=== PATIENT | female | born 1965 | race Caucasian/White ===

== ENCOUNTER 2024-01-06 09:22 | Outpatient (AMB) | payer OTHER, SELFPAY ==
--- NOTE | 2024-01-06 09:37 | A.OFFVIS_ITS ---
Intake Vital Signs 01/06/24 09:41 Height 5 ft 6 in Weight 285 lb BMI 46.0 BP 132/69 Blood Pressure Location Lt brachial Position Sitting Pulse 95 Intake Visit Reasons: Colonoscopy screening Intake Note: Patient first pre colonoscopy screening. Patient denies any GI issues. Reading Coach Required: No Accompanied by: Self / Same As Patient Allergies No Known Allergies Allergy (Verified 01/06/24 09:37) Medication List - Last Reconciled 01/06/24 by Quin Li PA-C apixaban (Eliquis) 5 mg PO BID atorvastatin 20 mg PO DAILY cholecalciferol (vitamin D3) 125 mcg PO DAILY hydrochlorothiazide 25 mg PO DAILY lisinopril 10 mg PO DAILY loratadine 10 mg PO DAILY magnesium 250 mg PO DAILY omeprazole 20 mg PO DAILY HPI HPI Comments History of Present Illness Details A 58 y/o female referred for index screening colonoscopy Appetite good Bowels normal Works FT No cardiac or respiratory Hx DVT-eliquis since 12/2020- hes stopped for procedures No N/V/D/ abdominal pain- fever or chills PFSH Surgical History Hx of arthroscopy History of bunionectomy Hx of foot surgery Family History Father HTN (hypertension) Sister DMII (diabetes mellitus, type 2) Social History (Updated 01/06/24 @ 09:54 by Quin Li PA-C) Household Members: Family Alcohol intake: never Patient Tobacco Use Status: Former Tobacco user Current occupational status: employed Current occupation: factory Physical Exam Vital Signs: Last Vital Signs Pulse 95 01/06/24 09:41 BP 132/69 01/06/24 09:41 BMI result Body Mass Index 46.0 Const General: cooperative, healthy appearing, comfortable and no acute distress Nutritional Appearance: overweight Orientation/consciousness: patient oriented x3 Limitations: no limitations Eyes Sclerae: sclerae normal Resp Auscultation: clear to auscultation bilaterally, no rales, no rhonchi and no wheezes Cardio Rate: regular rate Rhythm: regular rhythm Heart sounds: S1 normal heart sound present and S2 normal heart sound present GI Palpation (GI): Soft to palpation and nontender Auscultation: normal bowel sounds Skin General skin exam: no rashes or lesions noted Neuro General: patient oriented x3 Extrem General: Yes full ROM Psych Appearance: grossly normal Mental Status: mental status grossly normal Speech and movement: Normal speech and movement present Affect: normal affect Attitude: cooperative Thought process: Normal thought process present Thought content: Normal thought content present Insight: Good insight present (Psych) Judgement: Good judgement present (Psych) Assessment & Plan Assessment & Plan (1) Encounter for screening colonoscopy: Comment: 58-year-old female factor V, history DVT long-term anticoagulation (Eliquis) Discussed procedure, risks need for escorted due to anesthesia Reviewed medications, typically discontinue Eliquis 2 days prior She has done this past with no adverse affects Code(s): Z12.11 - Encounter for screening for malignant neoplasm of colon Plan: Index screening colonoscopy (2) DVT (deep venous thrombosis): Comment: 02/20/2021-eliquis Code(s): I82.409 - Acute embolism and thrombosis of unspecified deep veins of unspecified lower extremity (3) Factor V Leiden: Code(s): 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 238 grams PO ONCE 1 day PRN 238 grams 0RF laxative effect Patient Instructions: Index colonoscopy MG prep, reviewed, lit given eliquis- stop x 2 days- authorize-pt to confirm with pcp No major barriers to understanding were identified Coding Level of Care Code New Pt Level 3 (14310) Diagnoses Encounter for screening colonoscopy Z12.11 DVT (deep venous thrombosis) I82.409 Factor V Leiden D68.51 Time Spent (min) 30
[2024-01-06 09:41] VITALS: BP 132/69; PULSE 95; BMI 46.0
== END 2024-01-06 10:00 | disposition home or self-care (01) ==
PROVIDERS: PCP Hospitalist; Visit Provider Physician Assistant
DX: Z01.818 Encounter for other preprocedural examination (principal); Z12.11 Encounter for screening for malignant neoplasm of colon; I82.409 Acute embolism and thrombosis of unspecified deep veins of unspecified lower extremity; D68.51 Activated protein C resistance
CPT/HCPCS: S0285

== ENCOUNTER → 2024-01-06 09:22 | Outpatient (BNVA) | payer OTHER, SELFPAY | PROVIDERS: PCP Hospitalist; Visit Provider Physician Assistant ==

== ENCOUNTER 2024-05-15 09:09 | Day surgery (SDC) | payer OTHER, SELFPAY ==
--- NOTE | 2024-05-14 10:11 | HO.ANESPROP2 ---
Documented by User: Juliana Gonzalez NP 05/14/24 10:13 HPI - Anesthesia Eval Consult details Narrative: 58yo F for Colonoscopy Eliquis for Factor V / Hx DVT PMFSH Active Problems Active Problems: All Active Problems Factor V Leiden (Acute) DVT (deep venous thrombosis) (Acute) Encounter for screening colonoscopy (Acute) Past Medical History Medical History (Updated 05/14/24 @ 10:12 by Juliana Gonzalez NP) Factor V Leiden DVT (deep venous thrombosis) Family History Family History Father HTN (hypertension) Sister DMII (diabetes mellitus, type 2) Surgical History Surgical History (Updated 05/15/24 @ 11:10 by Ayana Bermudez RN) Hx of arthroscopy History of bunionectomy Hx of foot surgery Social History Social History (Updated 01/06/24 @ 09:54 by Quin Li PA-C) Household Members: Family Alcohol intake: never Patient Tobacco Use Status: Former Tobacco user Use of substances other than those prescribed or required for medical reasons: No Are you DNR?: No Advance Directives: No Advance Directives Information Provided: Yes Current occupational status: employed Current occupation: [employer] Allergies Allergy/AdvReac Type Severity Reaction Status Date / Time No Known Allergies Allergy Verified 01/06/24 09:37 Home Medications ?Medication ?Instructions ?Recorded ?Confirmed ?Last Taken ?Type apixaban 5 mg tablet (Eliquis) 5 mg PO BID 01/06/24 05/12/24 History atorvastatin 20 mg tablet 20 mg PO DAILY 01/06/24 Unknown History cholecalciferol (vitamin D3) 125 125 mcg PO DAILY 01/06/24 Unknown History mcg (5,000 unit) capsule hydrochlorothiazide 25 mg tablet 25 mg PO DAILY 01/06/24 Unknown History lisinopril 10 mg tablet 10 mg PO DAILY 01/06/24 Unknown History loratadine 10 mg tablet 10 mg PO DAILY 01/06/24 Unknown History magnesium 250 mg tablet 250 mg PO DAILY 01/06/24 Unknown History omeprazole 20 mg tablet,delayed 20 mg PO DAILY 01/06/24 Unknown History release Assessment and Plan Assessment Anesthesia Assessment: Chart Reviewed Documented by User: Jamison Lawton MD 05/15/24 12:23 [facility] Past Medical History Medical History (Updated 05/14/24 @ 10:12 by Juliana Gonzalez NP) Factor V Leiden DVT (deep venous thrombosis) Family History Family History Father HTN (hypertension) Sister DMII (diabetes mellitus, type 2) Family history of problems with anesthesia: No Surgical History Surgical History (Updated 05/15/24 @ 11:10 by Ayana Bermudez RN) Hx of arthroscopy History of bunionectomy Hx of foot surgery History of Problems with Anesthesia: No Social History Social History (Updated 01/06/24 @ 09:54 by Quin Li PA-C) Household Members: Family Alcohol intake: never Patient Tobacco Use Status: Former Tobacco user Use of substances other than those prescribed or required for medical reasons: No Are you DNR?: No Advance Directives: No Advance Directives Information Provided: Yes Current occupational status: employed Current occupation: [employer] Allergies Allergy/AdvReac Type Severity Reaction Status Date / Time No Known Allergies Allergy Verified 01/06/24 09:37 Home Medications ?Medication ?Instructions ?Recorded ?Confirmed ?Last Taken ?Type apixaban 5 mg tablet (Eliquis) 5 mg PO BID 01/06/24 05/12/24 History atorvastatin 20 mg tablet 20 mg PO DAILY 01/06/24 Unknown History cholecalciferol (vitamin D3) 125 125 mcg PO DAILY 01/06/24 Unknown History mcg (5,000 unit) capsule hydrochlorothiazide 25 mg tablet 25 mg PO DAILY 01/06/24 Unknown History lisinopril 10 mg tablet 10 mg PO DAILY 01/06/24 Unknown History loratadine 10 mg tablet 10 mg PO DAILY 01/06/24 Unknown History magnesium 250 mg tablet 250 mg PO DAILY 01/06/24 Unknown History omeprazole 20 mg tablet,delayed 20 mg PO DAILY 01/06/24 Unknown History release Exam Airway Mallampati Class: II TM Dist: >3cm Neck ROM: Full Loose/Missing/Broken Teeth: No Heart: ok Lungs: ok Assessment and Plan Assessment Anesthesia Assessment: Anesthesia Plan Discussed Final Anesthetic Review Family History of Problems with Anesthesia: No History of Problems with Anesthesia: No ASA Class: III Final Preanesthetic Review: No Changes in Pt Med Stat, Meds/Allgs Chart Reviewed, Consent Obtained/Reviewed and Anes Risks/Benef Reviewed Patient Risk: Intermediate Procedure Risk: Low Anesthetic Plan Anesthetic Plan: MAC: and Agree w/ Assess. and Plan Disposition: Standard PACU
--- NOTE | 2024-05-15 10:52 | MHC.SHP ---
Pre-Procedural Eval Section A - 24 Hr Update-Section A only Date of Service: 05/15/24 The patient is an INPATIENT: No The patient has been examined within 24 hours of the surgical procedure. The History & Physical has been completed within 30 days and I have reviewed it.: No Section B - Complete if H&P > 30 days Chief Complaint: Colon cancer screening Relevant Family History (Specify if Yes): No Relevant Social History: Tobacco Use (Former smoker) Present Medications: see Short Stay Collaborative assessment Medical History: Significant History (History of DVT - on chronic anticoagulation) History of Previous Operations: Relevant previous surgery/procedure and date(s) (Hx of arthroscopy History of bunionectomy Hx of foot surgery) Allergies: Allergies Allergy/AdvReac Type Severity Reaction Status Date / Time No Known Allergies Allergy Verified 01/06/24 09:37 Review of Systems Sugical H&P ROS: Negative: Constitution, Cardiovascular, Respiratory and Gastrointestinal Exam Surgical H&P Exam: Normal: Heart, Normal: Lungs, Normal: Extremities and Normal: Abdomen Plan Diagnosis/Plan: Unchanged I have reviewed the history and physical and performed a pertinent physical examination on my patient. No changes have occurred unless specified. Time Spent With Patient Time: Total time managing care of this patient today ____ minutes.
[2024-05-15 11:17] VITALS: BMI 44.9
[2024-05-15 11:24] VITALS: BP 114/66; PULSE 91; RESP 16; TEMP 37; O2SAT 97
[2024-05-15] MEDS: Lactated Ringers 1,000 ML 100 ML IVCONT (11:36)
--- NOTE | 2024-05-15 13:10 | HO.OPN-COLON ---
Colonoscopy Operative Note Operative Note Date of Service: 05/15/24 Narrative: COLONOSCOPY TILL CECUM WITH BIOPSIES AND SNARE POLYPECTOMY Pre-op diagnosis: Colon cancer screening (first colonoscopy). Post-op diagnosis:? Colon polyp, Diverticulosis, hemorrhoids Endoscopist:? Hao Jensen MD Anesthesia:?MAC Consent: Indications for the procedure and potential complications of bleeding, perforation, reaction to medications and missed diagnosis were discussed with the patient and informed consent was obtained. Instrument: Olympus PCF H 190 L variable stiffness pediatric colonoscope Monitoring: Vital signs and clinical assessment, intermittent blood pressure monitoring, continuous EKG monitoring, Pulse oximetry and Carbon Dioxide monitoring were done throughout the procedure. Please see anesthesia flowsheet. Colon withdrawl time was 31 minutes. Procedure: The patient was placed in the left lateral decubitis position and pre-procedure medications were administered. After a digital rectal examination of the ano-rectum, the video colonoscope was inserted into the rectum and advanced through the colon to the cecum. The colonoscope was slowly withdrawn in a retrograde panoramic fashion and the colon mucosa was carefully examined including a retroflexed view of the rectum. Findings and interventions are described below. Procedure Difficulty: without difficulty Findings: Terminal Ileum: Not evaluated Cecum: Normal Ascending Colon: A 4-5 mm sessile polyp - removed with a cold snare Transverse Colon: Normal Descending Colon: Moderate diverticulosis Sigmoid Colon: A 4- 5 mm sessile polyp - removed with a cold bx. Moderate diverticulosis Rectum: A 4-5 mm sessile polyp in the distal rectum - removed with a cold snare Ano-rectum: Small internal hemorrhoids Colon preparation: Good after copious irrigation. [place] Bowel Preparation Scale Right colon; 2 Transverse colon: 2 Left colon; 2 (0 = Unprepared colon segment with mucosa not seen due to solid stool that cannot be cleared. 1 = Portion of mucosa of the colon segment seen, but other areas of the colon segment not well seen due to staining, residual stool and/or opaque liquid. 2 = Minor amount of residual staining, small fragments of stool and/or opaque liquid, but mucosa of colon segment seen well. 3 = Entire mucosa of colon segment seen well with no residual staining, small fragments of stool or opaque liquid) Impression and Post Procedure Diagnosis: Colonoscopy Findings: Three small polyps were removed Random biopsies were obtained from the left colon to check for microscopic colitis Moderate diverticulosis seen in the left colon Small hemorrhoids on retroflexed exam. Plan: Pt has a FU appointment on 06/01/24 with KRYSTAL Lea Repeat Colonoscopy in 3-5 years if polyps are adenomatous and 10 year if polyps are hyperplastic. Above findings were reviewed with the patient and relevant handouts were given and the discharge area.
[2024-05-15 13:16] VITALS: BP 102/63; PULSE 87; RESP 18; TEMP 36.3; O2SAT 97
[2024-05-15 13:31] VITALS: BP 120/75; PULSE 69; RESP 18; TEMP 36.4; O2SAT 98
== END 2024-05-15 14:08 | disposition home or self-care (01) ==
PROVIDERS: PCP Hospitalist; Visit Provider Internal Medicine Gastroenterology
PROC: 0DJD8ZZ Inspection of Lower Intestinal Tract, Via Natural or Artificial Opening Endoscopic (ICD-10-PCS; CPT 45378; principal; 2024-05-15 11:20)
DX: Z12.11 Encounter for screening for malignant neoplasm of colon (principal); D12.2 Benign neoplasm of ascending colon; K63.5 Polyp of colon; K62.1 Rectal polyp; K57.30 Diverticulosis of large intestine without perforation or abscess without bleeding; K64.8 Other hemorrhoids; D68.51 Activated protein C resistance; Z86.718 Personal history of other venous thrombosis and embolism; Z79.01 Long term (current) use of anticoagulants; Z79.899 Other long term (current) drug therapy; Z87.891 Personal history of nicotine dependence; Z98.890 Other specified postprocedural states
CPT/HCPCS: 45385; 45380; 88305; J2704; J3010

== ENCOUNTER → 2024-05-15 09:09 | Outpatient (BNV) | payer OTHER, SELFPAY | PROVIDERS: PCP Hospitalist; Visit Provider Internal Medicine Gastroenterology | DX: Z12.11 Encounter for screening for malignant neoplasm of colon (principal); D12.2 Benign neoplasm of ascending colon; K62.1 Rectal polyp; K63.5 Polyp of colon; K64.8 Other hemorrhoids; K57.90 Diverticulosis of intestine, part unspecified, without perforation or abscess without bleeding | CPT/HCPCS: 45380; 45385 ==